=== PATIENT | female | born 2000 | race Two or more races ===

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

== ENCOUNTER 2020-02-27 09:11 | Emergency (ER) | payer OTHER, MEDICAID ==
[~2020-02-27] VITALS: Ht 157.5 cm; Wt 105.2 kg
[2020-02-27] MEDS ORDERED: ACETAMINOPHEN 500 MG TAB PO ONE (10:15)
[2020-02-27 10:17] VITALS: BP 120/72
== END 2020-02-27 11:14 | disposition home or self-care (01) ==
LOC: ER 09:11
DX: S39.012A Strain of muscle, fascia and tendon of lower back, initial encounter (principal); O26.891 Other specified pregnancy related conditions, first trimester; F12.10 Cannabis abuse, uncomplicated; V49.9XXA Car occupant (driver) (passenger) injured in unspecified traffic accident, initial encounter; Y93.89 Activity, other specified; Y92.89 Other specified places as the place of occurrence of the external cause; Y99.8 Other external cause status
CPT/HCPCS: 81025

== ENCOUNTER 2020-03-15 07:42 | Emergency (ER) | payer MEDICAID ==
[~2020-03-15] VITALS: Ht 157.5 cm; Wt 104.3 kg
[2020-03-15] MEDS ORDERED: SODIUM CHLORIDE 0.9% 1,000 ML IV ONE (07:55)
[2020-03-15] MEDS ORDERED: PROMETHAZINE HCL 25 MG/ML 1ML IV ONE (08:00)
[2020-03-15 08:31] LABS: Basophils # (auto) 0.1 10 ^3/uL (0-0.2); Basophils % (auto) 0.6 % (0.0-2.0); Eosinophils # (auto) 0 10 ^3/uL (0-0.8); Eosinophils % (auto) 0.2 % (0.0-7.0); Hematocrit 46.6 % (36.0-46.0); Lymphocytes # (auto) 1.8 10 ^3/uL (0.4-5.4); Lymphocytes % (auto) 19.9 % (10.0-50.0); Mean Corpuscular Hemoglobin 31.2 pg (28.0-32.0); Mean Corpuscular Hgb Conc. 34.3 g/dL (32.0-36.0); Mean Corpuscular Volume 90.9 fL (80.0-100.0); Monocytes # (auto) 0.5 10 ^3/uL (0-1.3); Monocytes % (auto) 5.3 % (0.0-12.0); Neutrophils # (auto) 6.8 10 ^3/uL (1.6-8.6); Nucleated Red Blood Cells % 0.1 %; Platelet Count (auto) 310 10^3/uL (140-450); Red Blood Cells 5.12 10^6/uL (4.0-5.20); Red Cell Distribution Width 13.9 % (11.8-14.3); White Blood Cell 9.2 10^3/uL (4.4-10.8)
[2020-03-15 08:55] LABS: Urine Bacteria FEW /hpf (None Seen); Urine Blood TRACE /uL (Negative); Urine Mucus FEW (None Seen); Urine Specific Gravity 1.029 (1.001-1.035); Urine WBC 39 /hpf (0 - 5)
[2020-03-15 08:56] LABS: Albumin 4.1 g/dL (3.4-5.0); Potassium 3.1 mmol/L (3.5-5.1)
[2020-03-15 09:02] LABS: BUN/Creatinine Ratio 15.7; Total Protein 8.3 g/dL (6.4-8.2)
[2020-03-15 10:59] VITALS: BP 107/38
[2020-03-15] MEDS ORDERED: POTASSIUM EFFERVESENT TAB 25 MEQ PO ONE (11:30)
== END 2020-03-15 12:21 | disposition home or self-care (01) ==
LOC: ER 07:42
DX: O23.41 Unspecified infection of urinary tract in pregnancy, first trimester (principal); O21.8 Other vomiting complicating pregnancy; O26.891 Other specified pregnancy related conditions, first trimester; E86.0 Dehydration; E87.6 Hypokalemia; Z3A.09 9 weeks gestation of pregnancy
CPT/HCPCS: 36415; 80053; 81001; 84702; 85025; 96374; 99283; J2550; J7030

== ENCOUNTER 2024-05-05 03:36 | Inpatient (IN) | payer MEDICAID ==
[~2024-05-05] VITALS: Ht 160 cm; Wt 135.0 kg
[2024-05-05 06:56] LABS: Basophils # (auto) 0 10 ^3/uL (0-0.2); Basophils % (auto) 0.2 % (0.0-2.0); Eosinophils # (auto) 0 10 ^3/uL (0-0.8); Eosinophils % (auto) 0.3 % (0.0-7.0); Hemoglobin 15.1 g/dL (12.2-16.2); Lymphocytes # (auto) 1.3 10 ^3/uL (0.4-5.4); Lymphocytes % (auto) 11.9 % (10.0-50.0); Mean Corpuscular Hemoglobin 30.9 pg (28.0-32.0); Mean Corpuscular Hgb Conc. 33.6 g/dL (32.0-36.0); Mean Corpuscular Volume 92.1 fL (80.0-100.0); Monocytes # (auto) 0.3 10 ^3/uL (0-1.3); Monocytes % (auto) 2.9 % (0.0-12.0); Neutrophils # (auto) 9.5 10 ^3/uL (1.6-8.6); Neutrophils % (auto) 84.7 % (37.0-80.0); Nucleated Red Blood Cells % 0.1 %; Platelet Count (auto) 303 10^3/uL (140-450); Red Blood Cells 4.89 10^6/uL (4.0-5.20); Red Cell Distribution Width 13.3 % (11.8-14.3); White Blood Cell 11.3 10^3/uL (4.4-10.8)
[2024-05-05 07:02] LABS: Alanine Aminotransferase 40 U/L (7-40); Albumin 4.5 g/dL (3.2-4.8); Alkaline Phosphatase 70 U/L (46-116); Anion Gap 7 (5-15); Aspartate Aminotransferase 14 U/L (13-40); BUN/Creatinine Ratio 11.7 (10.0-20.0); Blood Urea Nitrogen 7 mg/dL (9-23); Calcium 9.6 mg/dL (8.7-10.4); Carbon Dioxide 26 mmol/L (20-30); Chloride 104 mmol/L (98-107); Glucose 132 mg/dL (74-106); Lipase 27 U/L (12-53); Potassium 4.1 mmol/L (3.5-5.1); Sodium 137 mmol/L (136-145); Total Protein 7.6 g/dL (5.7-8.2)
[2024-05-05 07:03] LABS: Bilirubin, Total 0.6 mg/dL (0.2-1.0)
[2024-05-05 08:31] VITALS: PULSE 93; RESP 16; O2SAT 100
[2024-05-05] MEDS: ONDANSETRON HCL 4 MG/2 ML VIAL IV ONE (08:43)
[2024-05-05] MEDS: PANTOPRAZOLE 40 MG/10 ML VIAL INJ IV ONE (08:43)
[2024-05-05] MEDS: SODIUM CHLORIDE 0.9% 1,000 ML IV ONE (08:43)
[2024-05-05 12:19] LABS: Urine Bacteria FEW /hpf (None Seen); Urine Blood Negative /uL (Negative); Urine Budding Yeast OCCASIONAL /hpf (None Seen); Urine Clarity Turbid (Clear); Urine Color Light-Orange (Yellow); Urine Hyaline Cast FEW /lpf (0 - 2); Urine Mucus FEW (None Seen); Urine Protein, UAD 1+ (Negative); Urine Urobilinogen Normal (Negative); Urine WBC 38 /hpf (0 - 5); Urine pH 5.5 (5.0-9.0)
[2024-05-05 12:31] LABS: Amphetamine Screen, Urine Neg (NEGATIVE); Barbiturate Scree,Urine Neg (NEGATIVE); Benzodiazephine Screen, Urine Neg (NEGATIVE); Cannabinoid Screen, Urine Pos (NEGATIVE); Cocaine Screen, Urine Neg (NEGATIVE); Opiate Scree,Urine Neg (NEGATIVE); Phencyclidine Screen, Urine Neg (NEGATIVE)
[2024-05-05] MEDS ORDERED: ACETAMINOPHEN 325 MG TAB PO PRN (13:30)
[2024-05-05] MEDS ORDERED: HYDROmorphone HCL 2 MG/ML VL/or syr IV PRN (13:30)
[2024-05-05] MEDS ORDERED: DOCUSATE SOD 100 MG CAP PO PRN (13:30)
[2024-05-05] MEDS: SODIUM CHLOR 0.9% PF (SALINE LOCK) 10ML VIAL/SYR IV SCH (14:12)
[2024-05-05] MEDS: cefTRIAXone 1GM/50ML D5W 50 ML IV SCH (14:13)
[2024-05-05] MEDS: PANTOPRAZOLE 40 MG/10 ML VIAL INJ IV SCH (14:13)
[2024-05-05] MEDS: metroNIDAZOLE 500MG/100ML 100 ML IV SCH (14:14)
[2024-05-05] MEDS: HYDROcodone-ACET 5/325MG TAB PO PRN (14:21)
[2024-05-05] MEDS: LACTATED RINGER'S 1,000 ML IV ONE (14:28)
[2024-05-05] MEDS: ONDANSETRON HCL 4 MG/2 ML VIAL IV PRN (16:40)
[2024-05-05 18:18] VITALS: PULSE 89; RESP 18; O2SAT 100
[2024-05-05 18:19] VITALS: BP 136/80; PULSE 89; RESP 18; TEMP 97.7; O2SAT 100
[2024-05-05 18:20] VITALS: BP 136/80; PULSE 89; RESP 18; TEMP 97.7; O2SAT 100
[2024-05-05] MEDS ORDERED: SERT-289 PO (18:32)
[2024-05-05 21:05] VITALS: BP 134/74; PULSE 86; RESP 17; TEMP 97.9; O2SAT 95
[2024-05-06 05:00] VITALS: BP 109/65; PULSE 84; RESP 18; TEMP 98.6; O2SAT 98
[2024-05-06 06:00] LABS: Basophils # (auto) 0 10 ^3/uL (0-0.2); Basophils % (auto) 0.1 % (0.0-2.0); Eosinophils # (auto) 0.1 10 ^3/uL (0-0.8); Eosinophils % (auto) 1.8 % (0.0-7.0); Hematocrit 37.1 % (36.0-46.0); Hemoglobin 13.1 g/dL (12.2-16.2); Lymphocytes # (auto) 1.9 10 ^3/uL (0.4-5.4); Lymphocytes % (auto) 32.8 % (10.0-50.0); Mean Corpuscular Hgb Conc. 35.4 g/dL (32.0-36.0); Mean Corpuscular Volume 90.5 fL (80.0-100.0); Monocytes # (auto) 0.4 10 ^3/uL (0-1.3); Monocytes % (auto) 6.7 % (0.0-12.0); Neutrophils # (auto) 3.5 10 ^3/uL (1.6-8.6); Neutrophils % (auto) 58.6 % (37.0-80.0); Nucleated Red Blood Cells % 0.1 %; Platelet Count (auto) 246 10^3/uL (140-450); Red Cell Distribution Width 12.9 % (11.8-14.3); White Blood Cell 5.9 10^3/uL (4.4-10.8)
[2024-05-06 06:17] LABS: Alanine Aminotransferase 30 U/L (7-40); Albumin 3.6 g/dL (3.2-4.8); Alkaline Phosphatase 54 U/L (46-116); Anion Gap 5 (5-15); Aspartate Aminotransferase 16 U/L (13-40); BUN/Creatinine Ratio 14.3 (10.0-20.0); Bilirubin, Total 0.6 mg/dL (0.2-1.0); Blood Urea Nitrogen 8 mg/dL (9-23); Calcium 8.6 mg/dL (8.7-10.4); Carbon Dioxide 27 mmol/L (20-30); Chloride 105 mmol/L (98-107); Glucose 105 mg/dL (74-106); Potassium 3.5 mmol/L (3.5-5.1); Sodium 137 mmol/L (136-145); Total Protein 6.2 g/dL (5.7-8.2)
[2024-05-06 08:00] VITALS: PULSE 66; RESP 17; O2SAT 96
[2024-05-06 08:27] LABS: Magnesium 1.8 mg/dL (1.6-2.6)
[2024-05-06 08:29] LABS: Phosphorus 3.4 mg/dL (2.4-5.1)
[2024-05-06 09:17] VITALS: BP 151/98; PULSE 66; RESP 17; TEMP 98.4; O2SAT 96
[2024-05-06] MEDS: ENOXAPARIN SOD 40 MG/0.4 ML SYRINGE SC SCH (11:25)
[2024-05-06] MEDS: PANTOPRAZOLE 40 MG/10 ML VIAL INJ IV SCH (11:25)
[2024-05-06] MEDS: FLORASTOR (S. BOULARDII) 250 MG CAP PO SCH (11:26)
[2024-05-06 12:49] VITALS: BP 139/79; PULSE 103; RESP 16; TEMP 98; O2SAT 95
[2024-05-06 16:30] VITALS: BP 129/78; PULSE 91; RESP 16; TEMP 98.1; O2SAT 99
[2024-05-06 21:00] VITALS: BP 125/83; PULSE 82; RESP 15; TEMP 99.2; O2SAT 98
[2024-05-07 01:00] VITALS: BP 132/85; PULSE 90; RESP 16; TEMP 98.1; O2SAT 95
[2024-05-07 05:00] VITALS: BP 123/83; PULSE 86; RESP 16; TEMP 97.7; O2SAT 95
[2024-05-07 05:05] LABS: Basophils # (auto) 0 10 ^3/uL (0-0.2); Basophils % (auto) 0.4 % (0.0-2.0); Eosinophils # (auto) 0.1 10 ^3/uL (0-0.8); Eosinophils % (auto) 2.4 % (0.0-7.0); Hematocrit 38.3 % (36.0-46.0); Hemoglobin 13.3 g/dL (12.2-16.2); Lymphocytes # (auto) 1.9 10 ^3/uL (0.4-5.4); Lymphocytes % (auto) 39.2 % (10.0-50.0); Mean Corpuscular Hemoglobin 31.9 pg (28.0-32.0); Mean Corpuscular Hgb Conc. 34.8 g/dL (32.0-36.0); Mean Corpuscular Volume 91.5 fL (80.0-100.0); Monocytes # (auto) 0.4 10 ^3/uL (0-1.3); Monocytes % (auto) 7.8 % (0.0-12.0); Neutrophils # (auto) 2.5 10 ^3/uL (1.6-8.6); Neutrophils % (auto) 50.2 % (37.0-80.0); Nucleated Red Blood Cells % 0.2 %; Platelet Count (auto) 242 10^3/uL (140-450); Red Blood Cells 4.19 10^6/uL (4.0-5.20); Red Cell Distribution Width 12.9 % (11.8-14.3); White Blood Cell 4.9 10^3/uL (4.4-10.8)
[2024-05-07 05:18] LABS: Alanine Aminotransferase 35 U/L (7-40); Alkaline Phosphatase 56 U/L (46-116); Anion Gap 6 (5-15); BUN/Creatinine Ratio 12.3 (10.0-20.0); Blood Urea Nitrogen 7 mg/dL (9-23); Calcium 8.7 mg/dL (8.7-10.4); Carbon Dioxide 25 mmol/L (20-30); Chloride 106 mmol/L (98-107); Glucose 122 mg/dL (74-106); Potassium 3.5 mmol/L (3.5-5.1); Sodium 137 mmol/L (136-145)
[2024-05-07 05:19] LABS: Albumin 3.5 g/dL (3.2-4.8); Aspartate Aminotransferase 14 U/L (13-40); Bilirubin, Total 0.3 mg/dL (0.2-1.0); Total Protein 6.2 g/dL (5.7-8.2)
[2024-05-07 08:10] VITALS: PULSE 83; RESP 16
[2024-05-07 08:53] VITALS: BP 126/65; PULSE 83; RESP 16; TEMP 98.2; O2SAT 97
[2024-05-07] MEDS ORDERED: METR-344 PO (09:52)
[2024-05-07] MEDS ORDERED: CIPR500T4 PO (09:52)
[2024-05-07 12:29] VITALS: BP 128/84; PULSE 82; RESP 17; TEMP 98; O2SAT 98
[2024-05-07 15:13] VITALS: BP 128/84; PULSE 82; RESP 17; TEMP 98; O2SAT 98
[2024-05-08 08:42] LABS: Hepatitis B Surface Antigen Negative (Negative)
[2024-05-08 09:03] LABS: Hepatitis A Ab IgM Negative
[2024-05-08 09:04] LABS: Hepatitis B Core IgM Negative; Hepatitis C Antibody Negative (Negative)
== END 2024-05-07 15:45 | disposition home or self-care (01) | DRG 249 ==
LOC: ER 03:47 → OVERFLOW 13:31 → CENTRAL 19:03
PROVIDERS: ADMIT Internal Medicine Pulmonary Disease; ATTEND Emergency Medicine
DX: A09 Infectious gastroenteritis and colitis, unspecified (principal); R16.0 Hepatomegaly, not elsewhere classified; N39.0 Urinary tract infection, site not specified; Z68.43 Body mass index [BMI] 50.0-59.9, adult; R73.03 Prediabetes; E66.01 Morbid (severe) obesity due to excess calories
CPT/HCPCS: 36415; 74176; 80053; 80074; 80307; 81001; 82306; 82607; 83036; 83690; 83735; 84100; 84443; 84702; 85025; 87493; G0378; J2405; J2470; J3490

== ENCOUNTER 2025-06-16 18:49 | Emergency (ER) | payer MEDICAID ==
[~2025-06-16] VITALS: Ht 162.6 cm; Wt 121.0 kg
[~2025-06-16 18:49] MED LIST: CIPR500T4 PO; METR-344 PO; SERT-289 PO
[2025-06-16 19:24] LABS: Hematocrit 40.1 % (36.0-46.0); Hemoglobin 14.0 g/dL (12.2-16.2); Mean Corpuscular Hemoglobin 31.0 pg (28.0-32.0); Mean Corpuscular Volume 88.7 fL (80.0-100.0); Nucleated Red Blood Cells % 0.0 %
--- NOTE | 2025-06-16 19:26 | ED.PDOC ---
GI ASSESSMENT HPI Comments HPI: 25 year old female presents to the emergency department with a chief compliant of nausea/vomiting onset 2 weeks. Patient is 10 weeks , has been seen by OBGYN. She was prescribed Zofran 4mg, dose was increased to 8 mg with no improvement of symptoms, was placed on Diclegis, no improvement of symptoms. Patient states she has experienced hyperemesis gravidarum with previous pregnancies, was recently diagnosed with gestational DM. Today, she has experienced 6 emesis episodes. Denies fever, chills, headache, dizziness, vaginal bleeding, vaginal discharge, dysuria, chest pain, shortness of breath. No other symptoms or modifying factors present at this time. Initial Vitals BP: 132/69 HR: 90 RR: 18 O2: 97% Temp: 98.3 F Past Medical History: Anxiety, bipolar disorder. P:2 Past Surgical History: appendectomy Social History: Denies ETOH, smoking, and drug use. Medications: Zofran, Diclegis Allergies: NKDA ROB: RECURRENT HYPEREMESIS GRAVIDARUM HPI: Poor Historian. REVIEW OF SYSTEMS: CONSTITUTIONAL: Denies acute: fever, diaphoresis, chills, generalized weakness. HEAD: Denies acute: headache, photophobia Eyes: Denies acute: Double vision, vision loss, eye pain, eye discharge. EARS: Denies acute: tinnitus, hearing loss, ear discharge, ear pain, THROAT: Denies acute: sore throat, swelling, difficulty swallowing , pain with swallowing, change in voice. NECK: Denies acute: neck pain, neck swelling, stiff neck. HEART: Denies acute : chest pain, palpitations, LUNGS: Denies acute: SOB, wheezing, cough, hemoptysis ABDOMEN: Denies acute: abdominal pain, , diarrhea, melena , hematemesis, hematochezia SKIN: Denies acute: rash, redness, lesions, itchiness. EXTREMITIES: Denies acute: calf pain, numbness, tingling, weakness, denies pain in extremity. Denies acute: Low back pain. Neuro: Denies acute: focal neurological deficit, motor or sensory focal neurological deficit, tremors, seizure like activity, confusion, dizziness, change in mental status, loss of bowel or bladder function, cauda equina like symptoms. : Denies acute: dysuria, hematuria, flank pain, increase in urinary frequency. PSYCH: Denies acute: hallucination, suicidal ideation, homicidal ideation. FEMALE: Denies acute: foul odor, unusual discharge. PHYSICAL EXAM: General: ----mild----acute distress, awake and alert. Head: normocephalic, atraumatic. Neck: supple, trachea is midline, no swelling. Throat: Normal phonation. Eyes:, no erythema, no purulent discharge, no proptosis, no icterus. Heart: regular rate, regular rhythm, no significant murmur appreciated. Lungs: no apparent respiratory distress, Able to speak in full sentences. No wheezing, no rhonchi, no crackles. No stridors Clear to auscultation bilaterally. Abdomen: non tender to palpation, non distended, soft, no guarding, no rebound, + bowel sounds. Obese Neuro: Awake, Alert, oriented to name, self, situation, follows commands GCS=15. Speech is normal. Skin: no petechia, no purpura, no cyanosis, non-pale, not jaundice. Lower extremities: --no - Pitting edema no deformity, no focal swelling, no calf TTP. Makes eye contact. moves all four extremities. Face: no apparent facial droop. Ambulating in the ED independently. ED COURSE: DISCLAIMER: This medical document was created using an electronic medical record system with voice recognition software and computerized dictation system. Although this document has been carefully reviewed, there might still be some phonetic and typographical errors. Occasional wrong-word or "sound-alike" substitutions may have occurred due to the inherent limitations of voice recognition software. These areas are purely typographical due to imperfections of the software programs and do not reflect any compromise in the patient's medical care. Please read the chart carefully and recognize, using context, where these substitutions have occurred. Chief Complaint: Nausea/Vomiting Time Seen by MD: 19:00 Primary Care Provider: none Reviewed Notes: Medications, Allergies Allergies: Coded Allergies: NO KNOWN ALLERGIES (Unverified , 06/04/18) Home Meds Active Scripts Metronidazole (Flagyl) 500 Mg Tab, 1 TAB PO TID, #21 TAB Prov:LATOYA PAREDES MD 05/07/24 Ciprofloxacin Hcl (Ciprofloxacin Hcl) 500 Mg Tab, 1 TAB PO BID, #14 TAB Prov:LATOYA PAREDES MD 05/07/24 Reported Medications Sertraline HCl (Sertraline HCl) 50 Mg Tab, 1 TAB PO DAILY 05/05/24 Information Source: Patient Mode of Arrival: Ambulatory Timing: Weeks Duration: Since onset Prehospital treatment: Other (diclegis, Zoan) Past Medical History PAST MEDICAL HISTORY: Anxiety Surgical History: Appendectomy 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 Was a procedure done?: No X-Ray, Labs, Meds, VS Vital Signs Date Time Temp Pulse Resp B/P (MAP) Pulse Ox O2 Delivery O2 Flow Rate FiO2 06/16/25 19:45 72 06/16/25 18:52 98.3 90 18 132/69 97 98.3 Lab Test 06/16/25 22:50 06/16/25 19:10 Range/Units Urine Color Yellow Yellow Urine Clarity Turbid H Clear Urine pH 6.0 5.0-9.0 Urine Specific [place] 1.034 1.001-1.035 Urine Protein 1+ H Negative Urine Ketones 4+ H Negative Urine Blood Negative Negative /uL Urine Nitrite Negative Negative Urine Bilirubin Negative Negative Urine Urobilinogen Normal Negative mg/dL Urine Leukocyte Esterase 1+ Negative /uL Urine Glucose Normal Normal mg/dL Urine Opiates Screen Neg NEGATIVE Urine Fentanyl Screen Neg NEGATIVE Urine Barbiturates Screen Neg NEGATIVE Urine Phencyclidine Screen Neg NEGATIVE Urine Amphetamines Screen Neg NEGATIVE Urine Benzodiazepines Screen Neg NEGATIVE Urine Cocaine Screen Neg NEGATIVE Urine Cannabinoids Screen Pos NEGATIVE White Blood Count 8.9 4.4-10.8 10^3/uL Red Blood Count 4.52 4.0-5.20 10^6/uL Hemoglobin 14.0 12.2-16.2 g/dL Hematocrit 40.1 36.0-46.0 % Mean Corpuscular Volume 88.7 80.0-100.0 fL Mean Corpuscular Hemoglobin 31.0 28.0-32.0 pg Mean Corpuscular Hemoglobin Concent 34.9 32.0-36.0 g/dL Red Cell Distribution Width 13.4 11.8-14.3 % Platelet Count 283 140-450 10^3/uL Mean Platelet Volume 8.2 6.9-10.8 fL Neutrophils (%) (Auto) 60.2 37.0-80.0 % Lymphocytes (%) (Auto) 33.6 10.0-50.0 % Monocytes (%) (Auto) 4.9 0.0-12.0 % Eosinophils (%) (Auto) 0.3 0.0-7.0 % Basophils (%) (Auto) 1.0 0.0-2.0 % Neutrophils # (Auto) 5.3 1.6-8.6 10 ^3/uL Lymphocytes # (Auto) 3.0 0.4-5.4 10 ^3/uL Monocytes # (Auto) 0.4 0-1.3 10 ^3/uL Eosinophils # (Auto) 0 0-0.8 10 ^3/uL Basophils # (Auto) 0.1 0-0.2 10 ^3/uL Nucleated Red Blood Cells 0.0 % Sodium Level 139 136-145 mmol/L Potassium Level 3.3 L 3.5-5.1 mmol/L Chloride Level 104 98-107 mmol/L Carbon Dioxide Level 23 20-31 mmol/L Anion Gap 12 5-15 Blood Urea Nitrogen < 5 L 9-23 mg/dL Creatinine 0.45 L 0.550-1.02 mg/dL Glomerular Filtration Rate Calc 137 >90 mL/min BUN/Creatinine Ratio 11.1 10.0-20.0 Serum Glucose 82 74-106 mg/dL Calcium Level 9.2 8.7-10.4 mg/dL Total Bilirubin 0.4 0.2-1.0 mg/dL Aspartate Amino Transferase (AST) 11 L 13-40 U/L Alanine Aminotransferase (ALT) 15 7-40 U/L Alkaline Phosphatase 48 46-116 U/L Total Protein 7.4 5.7-8.2 g/dL Albumin 4.3 3.2-4.8 g/dL Lipase 28 12-53 U/L Beta HCG, Quantitative 121222.6 H 1.5-4.2 mIU/mL Current Medications Medications (Trade) Dose Ordered Sig/Natividad Route Start Time Stop Time Status Last Admin Ondansetron HCl (Zofran) 8 mg ONCE ONCE IV 06/16/25 19:15 06/16/25 19:16 DC 06/16/25 20:12 Sodium Chloride 1,000 ml @ 1,000 mls/hr Q1H ONCE IV 06/16/25 19:30 06/16/25 20:29 DC 06/16/25 20:10 [place] [address] Ph: [phone] DIAGNOSTIC IMAGING Diagnostic Imaging Report : [id number] Signed PATIENT: STEPHANY FERNÁNDEZ ACCT: [id number] UNIT: [id number] : 2000 LOC: ER ROOM / BED: / AGE / SEX: 25 / F ADM STATUS: REG ER SERVICE 00 ORDERING PHYSICIAN: ALFREDO BRAGA DO PROCEDURE(s): OB4US - OB ULTRASOUND COMP LESS 14WKS REASON: abd pain, vag spotting ORDER NUMBER(s): [id number], ACCESSION NUMBER(s): [id number] CLINICAL HISTORY: abd pain, vag spotting TECHNIQUE: Ultrasound examination of the female pelvis was performed transabdominally. COMPARISON: None FINDINGS: The uterus measures 13.9 x 11.3 x 6.0 CM. The myometrial echotexture is homogenous. No focal myometrial abnormality is seen. There is a single live intrauterine with heart rate of 162 beats per minute. The crown-rump length is 5.3 cm, which correlates to a gestational age of 12 weeks 0 days. The amniotic fluid volume is visually normal. The viri centa is posterior. The right ovary measures 3.2 x 2.0 x 2.4 cm. The left ovary measures 2.1 x 1.6 x 2.6 cm. Normal color doppler flow and vascular waveforms. There is no free fluid. IMPRESSION: Single live intrauterine dated at 12 weeks 0 days by current ultrasound biometry. ATED BY: RONY ROWLEY MD DICTATED DATE/TIME: 06/16/252044 SIGNED BY: RONY ROWLEY MD SIGNED DATE/TIME: 10/07/25 2045 CC: Time of 1ST Reevaluation: 19:30 Reevaluation 1ST: Unchanged Time of 2ND Reevaluation: 23:26 (Still waiting on urinalysis) Patient Education/Counseling: Diagnosis, Treatment Family Education/Counseling: No Family Present Comments Patient already has Zofran at home. Patient is planned to undergo a procedure again for a Zofran pump. Departure 1 Departure Time of Disposition: 21:53 Impression: Primary Impression: Hyperemesis gravidarum Additional Impressions: Intrauterine Marijuana abuse UTI in Disposition: 01 HOME / SELF CARE / HOMELESS Condition: Stable Additional Instructions: Additional instructions: Please read all instructions provided in this packet carefully. You MUST follow-up with your primary care/family doctor in 1 to 2 days. If you are unable to see your primary care/family doctor, please return to our emergency room for re-assessment and re-evaluation in 1 to 2 days. Return to the emergency room here in our facility or to the nearest ER [facility] if your symptoms change or worsen. CONSULTATIONS: you MUST Follow-up for consultation as soon as possible with: Dr.-OB Bettencourt doctor in 1-2 days. Please call for appointment. You MUST call the consultants office yourself to make an appointment. You may need to arrange that through your insurance and/or your primary/family doctor. If you are unable to see the workforce management consultant in 1 to 2 days, you must return to our emergency room (or any other ER of your choice) for re-assessment and re- evaluation. Adequate fluid hydration. Although you have been discharged from the Emergency Department, this does not mean that you have a "clean bill of health". No definitive diagnosis for your symptoms has been made today. It is possible that you are in the process of developing a serious illness. This is why you must return to the ED without fail if any new or worsening symptoms develop. Absolute pelvic rest. Below is a copy of your radiological report for follow up: [address] [address] Ph: [phone] DIAGNOSTIC IMAGING Diagnostic Imaging Report : [id number] Signed PATIENT: STEPHANY FERNÁNDEZ ACCT: [id number] UNIT: [id number] : 2000 LOC: ER ROOM / BED: / AGE / SEX: 25 / F ADM STATUS: REG ER SERVICE 1901 ORDERING PHYSICIAN: ALFREDO BRAGA DO PROCEDURE(s): OB4US - OB ULTRASOUND COMP LESS 14WKS REASON: abd pain, vag spotting ORDER NUMBER(s): [id number], ACCESSION NUMBER(s): [id number] CLINICAL HISTORY: abd pain, vag spotting TECHNIQUE: Ultrasound examination of the female pelvis was performed transabdominally. COMPARISON: None FINDINGS: The uterus measures 13.9 x 11.3 x 6.0 CM. The myometrial echotexture is homogenous. No focal myometrial abnormality is seen. There is a single live intrauterine with heart rate of 162 beats per minute. The crown-rump length is 5.3 cm, which correlates to a gestational age of 12 weeks 0 days. The amniotic fluid volume is visually normal. The placenta is posterior. The right ovary measures 3.2 x 2.0 x 2.4 cm. The left ovary measures 2.1 x 1.6 x 2.6 cm. Normal color doppler flow and vascular waveforms. There is no free fluid. IMPRESSION: Single live intrauterine dated at 12 weeks 0 days by current ultrasound biometry. ATED BY: RONY ROWLEY MD DICTATED DATE/TIME: 06/16/252044 SIGNED BY: RONY ROWLEY MD SIGNED DATE/TIME: 06/16/252044 CC: e-Prescriptions Cephalexin Monohydrate (Cephalexin) 500 Mg Cap 500 MG PO Q8HR for 5 Days, #15 CAP Prov: ALFREDO BRAGA DO 06/17/25 Discharged With: Self Critical Care Note Critical Care Time?: No I personally scribed for ALFREDO BRAGA DO ([email or web address]) on 06/16/25 at 19:26. Electronically submitted by Hiwot Castillo ([email or web address]). I personally scribed for ALFREDO BRAGA DO ([email or web address]) on 06/16/25 at 19:45. Electronically submitted by Hiwot Castillo ([email or web address]). ALFREDO BRAGA DO Jun 16, 2025 19:26
[2025-06-16 19:43] LABS: Alanine Aminotransferase 15 U/L (7-40); Albumin 4.3 g/dL (3.2-4.8); Alkaline Phosphatase 48 U/L (46-116); Anion Gap 12 (5-15); Bilirubin, Total 0.4 mg/dL (0.2-1.0); Calcium 9.2 mg/dL (8.7-10.4); Carbon Dioxide 23 mmol/L (20-31); Chloride 104 mmol/L (98-107); Glucose 82 mg/dL (74-106); Lipase 28 U/L (12-53); Sodium 139 mmol/L (136-145); Total Protein 7.4 g/dL (5.7-8.2)
[2025-06-16 19:48] LABS: BUN/Creatinine Ratio 11.1 (10.0-20.0); Blood Urea Nitrogen < 5 mg/dL (9-23); Potassium 3.3 mmol/L (3.5-5.1)
[2025-06-16] MEDS: SODIUM CHLORIDE 0.9% 1,000 ML IV ONE (20:10)
[2025-06-16] MEDS: ONDANSETRON HCL 4 MG/2 ML VIAL IV ONE (20:12)
--- NOTE | 2025-06-16 20:49 | DVH ---
CLINICAL HISTORY: abd pain, vag spotting TECHNIQUE: Ultrasound examination of the female pelvis was performed transabdominally. COMPARISON: None FINDINGS: The uterus measures 13.9 x 11.3 x 6.0 CM. The myometrial echotexture is homogenous. No focal myometr ial abnormality is seen. There is a single live intrauterine with heart rate of 162 beats per minute. The [place] n-rump length is 5.3 cm, which correlates to a gestational age of 12 weeks 0 days. The amniotic fluid volume is visually normal. The placenta is posterior. The right ovary measures 3.2 x 2.0 x 2.4 cm. The left ovary measures 2.1 x 1.6 x 2.6 cm. Normal color doppler flow and vascular waveforms. There is no free fluid. IMPRESSION: Single live intrauterine dated at 12 weeks 0 days by current ultrasound biometry.
[2025-06-16 23:27] LABS: Amphetamine Screen, Urine Neg (NEGATIVE); Barbiturate Scree,Urine Neg (NEGATIVE); Benzodiazephine Screen, Urine Neg (NEGATIVE); Cannabinoid Screen, Urine Pos (NEGATIVE); Cocaine Screen, Urine Neg (NEGATIVE); Opiate Scree,Urine Neg (NEGATIVE); Phencyclidine Screen, Urine Neg (NEGATIVE)
[2025-06-16 23:31] LABS: Urine Protein, UAD 1+ (Negative)
[2025-06-17] MEDS ORDERED: CEPH500C PO (00:02)
[2025-06-17 00:58] VITALS: BP 138/77; PULSE 69; RESP 18; TEMP 98.3; O2SAT 97
== END 2025-06-17 01:01 | disposition home or self-care (01) ==
LOC: ER 18:49
DX: O21.0 Mild hyperemesis gravidarum (principal); O00.01 Abdominal pregnancy with intrauterine pregnancy; O23.41 Unspecified infection of urinary tract in pregnancy, first trimester; N39.0 Urinary tract infection, site not specified; F12.90 Cannabis use, unspecified, uncomplicated; Z3A.10 10 weeks gestation of pregnancy; Z90.49 Acquired absence of other specified parts of digestive tract; Z79.899 Other long term (current) drug therapy
CPT/HCPCS: 36415; 76801; 80053; 80307; 81003; 83690; 84702; 85025; 86850; 86900; 86901; 96361; 96374; 99285; J2405; J7030

== ENCOUNTER → 2025-07-02 | Outpatient (CLI) | payer MEDICAID ==
[~2025-07-02] MED LIST changes: +CEPH500C PO
[2025-07-02 09:16] LABS: Hematocrit 40.9 % (36.0-46.0); Hemoglobin 13.8 g/dL (12.2-16.2); Mean Corpuscular Hemoglobin 30.5 pg (28.0-32.0); Mean Corpuscular Volume 90.4 fL (80.0-100.0); Nucleated Red Blood Cells % 0.0 %
[2025-07-02 11:59] LABS: Thyroid Stimulating Hormone 1.42 uIU/mL (0.55-4.78)
[2025-07-02 12:11] LABS: Beta HCG, Quantitative 57661.8 mIU/mL (1.5-4.2)
[2025-07-02 13:32] LABS: Cannabinoid Screen, Urine Pos (NEGATIVE)
[2025-07-02 14:05] LABS: Amphetamine Screen, Urine Neg (NEGATIVE); Barbiturate Scree,Urine Neg (NEGATIVE); Benzodiazephine Screen, Urine Neg (NEGATIVE); Cocaine Screen, Urine Neg (NEGATIVE); Opiate Scree,Urine Neg (NEGATIVE); Phencyclidine Screen, Urine Neg (NEGATIVE)
[2025-07-04 02:06] LABS: Chlamydia Trachomatis, NAA Negative (Negative); Neisseria gonorrhoeae, NAA Negative (Negative)
== END | disposition home or self-care (01) ==
LOC: LAB 08:23
PROVIDERS: ATTEND Obstetrics & Gynecology
DX: O23.40 Unspecified infection of urinary tract in pregnancy, unspecified trimester (principal); N39.0 Urinary tract infection, site not specified; Z11.3 Encounter for screening for infections with a predominantly sexual mode of transmission; Z20.09 Contact with and (suspected) exposure to other intestinal infectious diseases; Z31.430 Encounter of female for testing for genetic disease carrier status for procreative management; Z3A.00 Weeks of gestation of pregnancy not specified
CPT/HCPCS: 36415; 80307; 83036; 84144; 84443; 84702; 85025; 86592; 86703; 86762; 86780; 86787; 86850; 86900; 86901; 87086; 87340